=== PATIENT | female | born 1965 | race Caucasian/White ===

== ENCOUNTER 2018-03-15 06:00 | Inpatient (IN) | payer BC, OTHER ==
[~2018-03-15] VITALS: Ht 172.7 cm; Wt 248.0 kg
[~2018-03-15 06:00] MED LIST: ATOR40TA72 PO; CITA20TA11 PO; COU5T PO; CYCL-394 PO; FENO135C4 PO; FLUT1DIS4 IH; OXYC30TA85 PO; PER10325T PO; ZOLP10TA5 PO; [UNRECOGNIZED DRUG - CODE] PO
[2018-03-15] MEDS ORDERED: proCHLORperazine 10 MG/2 ml inj IV ONE (06:40)
[2018-03-15] MEDS ORDERED: normal saline 1000ML IV soln IVB ONE (06:40)
[2018-03-15] MEDS ORDERED: ketorolac trometh. 30mg/ml inj. IV ONE (06:40)
[2018-03-15 06:58] LABS: BASOPHILS % (AUTO) 0.3 % (0-1); EOSINOPHILS # (AUTO) 0.3 X10'3 (0-0.9); HEMATOCRIT 40.3 % (35.0-45.0); LYMPHOCYTES # (AUTO) 2.5 X10'3 (1.1-4.8); LYMPHOCYTES % (AUTO) 21.8 % (21-51); MEAN CORPUSCULAR HEMOGLOBIN 30.5 PG (27.0-31.0); MEAN CORPUSCULAR HGB CONC 34.7 % (33.0-36.5); MEAN CORPUSCULAR VOLUME 87.9 FL (78-98); MEAN PLATELET VOLUME 9.1 FL (7.4-10.4); MONOCYTES # (AUTO) 0.6 X10'3 (0-0.9); NEUTROPHILS # (AUTO) 8.1 X10'3 (1.8-7.7); NEUTROPHILS % (AUTO) 69.9 % (42-75); PLATELET COUNT 258 X10'3 (140-440); RED BLOOD COUNT 4.58 X10'6 (4.20-5.60); RED CELL DISTRIBUTION WIDTH 13.6 % (11.5-14.5); WHITE BLOOD COUNT 11.6 X10'3 (4.5-11.0)
[2018-03-15] MEDS: MORPHINE 2MG in 2ml NS syringe IV PRN ×2 (07:09→08:45)
[2018-03-15 07:28] LABS: ALANINE AMINOTRANSFERASE 24 U/L (12-78); ALBUMIN 3.3 G/DL (3.4-5.0); ALBUMIN/GLOBULIN RATIO 0.9 (1.1-1.5); ALKALINE PHOSPHATASE 81 IU/L (46-116); ANION GAP 11 (8-16); ASPARTATE AMINO TRANSFERASE 15 U/L (10-37); BILIRUBIN,TOTAL 0.3 MG/DL (0.1-1.0); BLOOD UREA NITROGEN 9 MG/DL (7-18); BUN/CREATININE RATIO 10.5 (6.6-38.0); CALCIUM 8.9 MG/DL (8.5-10.1); CHLORIDE 103 MMOL/L (99-107); CREATININE 0.86 MG/DL (0.40-0.90); GLUCOSE 263 MG/DL (70-104); LIPASE 64 U/L (73-393); POTASSIUM 4.3 MMOL/L (3.5-5.1); SODIUM 139 MMOL/L (135-145); TOTAL PROTEIN 7.1 G/DL (6.4-8.2); eGFR 70 ML/MIN
[2018-03-15] MEDS ORDERED: levoFLOXACIN-Levaquin 750MG/D5 150 ML IV STA (08:29)
[2018-03-15 09:02] LABS: CLARITY,URINE CLOUDY (Clear); COLOR,URINE PINK (Yellow); GLUCOSE, URINE >=1000 mg/dl (Neg); KETONES,URINE TRACE mg/dl (Neg); LEUKOCYTE ESTERASE ,URINE NEGATIVE (Neg); NITRITES, URINE NEGATIVE (Neg); OCCULT BLOOD,URINE LARGE (Neg); PH,URINE 6.5 (4.8-8.0); PROTEIN,URINE TRACE mg/dl (Neg); UA COLLECTION TYPE CLN CATCH MIDSTREAM; UROBILINOGEN,URINE 0.2 E.U/dL (0.2-1.0)
[2018-03-15 09:07] LABS: BACTERIA,URINE 2+ /HPF (Neg); MUCUS STRANDS NONE SEEN /LPF (Neg); RBC,URINE TNTC /HPF (0-2); SQUAMOUS EPITHELIAL CELL,UR MODERATE /LPF (FEW); WBC,URINE 0-4 /HPF (0-4)
[2018-03-15] MEDS ORDERED: glucagon, human recombinant 1mg kit SUBCUT PRN (09:35)
[2018-03-15] MEDS ORDERED: potassium Cl 40MEQ/NS 500ml 500 ML IV PRN ×2 (09:35)
[2018-03-15] MEDS ORDERED: ondansetron/PF 4mg/2ml inj IV PRN (09:35)
[2018-03-15] MEDS ORDERED: mag hydrox/Alum hydrox/simeth 30ml oral suspension PO PRN (09:35)
[2018-03-15] MEDS ORDERED: magnesium Cl slow-release 64mg tablet PO PRN (09:35)
[2018-03-15] MEDS ORDERED: bisacodyl 10mg suppository rectal RC PRN (09:35)
[2018-03-15] MEDS ORDERED: dextrose 50%-water 50ml dispensing syringe IV PRN ×2 (09:35)
[2018-03-15] MEDS ORDERED: insulin Lispro (HumaLOG) vial - multi-dose SQ SCH (09:35)
[2018-03-15] MEDS ORDERED: diphenhydrAMINE 50 mg/ml inj IV PRN (09:35)
[2018-03-15] MEDS ORDERED: metoclopramide 5 mg/ml inj IV PRN (09:35)
[2018-03-15] MEDS ORDERED: HYDROmorphone inj. 0.5 MG/0.5 ML DISP.SYRIN IV PRN ×2 (09:35)
[2018-03-15] MEDS ORDERED: magnesium 4gm in 100ml NS 100 ML IV PRN (09:35)
[2018-03-15] MEDS ORDERED: magnesium 2GM in 50ml NS 50 ML IV PRN (09:35)
[2018-03-15] MEDS ORDERED: MESSAGE TO PHARMACY PO ONE (09:35)
[2018-03-15] MEDS ORDERED: acetaminophen 325mg tablet PO PRN ×2 (09:35)
[2018-03-15] MEDS ORDERED: magnesium hydroxide 30ml (MOM) UD suspension PO PRN (09:35)
[2018-03-15] MEDS ORDERED: potassium Cl 20 mEq SR tablet PO PRN ×2 (09:35)
[2018-03-15] MEDS ORDERED: dextrose ORAL solution 15 GM/59 ML bottle PO PRN ×2 (09:35)
[2018-03-15] MEDS ORDERED: DABI150C PO (09:41)
[2018-03-15] MEDS ORDERED: INSU100V11 SQ (09:41)
[2018-03-15] MEDS ORDERED: INSU100V9 SQ (09:41)
[2018-03-15 10:15] LABS: HEMOGLOBIN A1C 7.8 % (4.5-6.2)
[2018-03-15 11:59] VITALS: BP 134/80
[2018-03-15] MEDS: morphine 4 MG/ML inj SYRINge IV PRN ×2 (15:01→20:11)
[2018-03-15] MEDS: potassium Cl 20mEq in NS 1,000 ML IV SCH ×2 (17:32→20:17)
[2018-03-15 19:00] VITALS: BP 164/92
[2018-03-15] MEDS: carvedilol 6.25mg tablet PO SCH (20:10)
[2018-03-15] MEDS: docusate sod 100mg capsule PO SCH (20:10)
[2018-03-15] MEDS: insulin glargine (Lantus) pen - multi-dose SQ SCH (20:42)
[2018-03-15] MEDS: dabigatran 150mg capsule PO SCH (20:43)
[2018-03-15] MEDS: tamsulosin 0.4mg capsule PO SCH (20:49)
[2018-03-15] MEDS ORDERED: temazepam 15mg capsule PO PRN (21:00)
[2018-03-16] VITALS (15 sets, daily range): BP systolic 118–159; BP diastolic 67–97
[2018-03-16] MEDS: morphine 4 MG/ML inj SYRINge IV PRN ×7 (00:15→20:49)
[2018-03-16] MEDS: potassium Cl 20mEq in NS 1,000 ML IV SCH ×3 (01:32→14:51)
[2018-03-16 05:10] LABS: BASOPHILS # (AUTO) 0.1 X10'3 (0-0.2); BASOPHILS % (AUTO) 0.8 % (0-1); EOSINOPHILS # (AUTO) 0.2 X10'3 (0-0.9); EOSINOPHILS % (AUTO) 2.1 % (0-6); HEMATOCRIT 40.5 % (35.0-45.0); HEMOGLOBIN 13.8 g/dl (12.0-16.0); LYMPHOCYTES % (AUTO) 26.7 % (21-51); MEAN CORPUSCULAR HEMOGLOBIN 29.8 PG (27.0-31.0); MEAN CORPUSCULAR HGB CONC 33.9 % (33.0-36.5); MEAN PLATELET VOLUME 9.3 FL (7.4-10.4); MONOCYTES # (AUTO) 0.9 X10'3 (0-0.9); MONOCYTES % (AUTO) 8.1 % (2-12); NEUTROPHILS # (AUTO) 6.9 X10'3 (1.8-7.7); NEUTROPHILS % (AUTO) 62.3 % (42-75); PLATELET COUNT 270 X10'3 (140-440); RED BLOOD COUNT 4.61 X10'6 (4.20-5.60); RED CELL DISTRIBUTION WIDTH 13.5 % (11.5-14.5); WHITE BLOOD COUNT 11.1 X10'3 (4.5-11.0)
[2018-03-16] MEDS ORDERED: ketorolac trometh. 30mg/ml inj. IV ONE (05:25)
[2018-03-16] MEDS ORDERED: morphine 4 MG/ML inj SYRINge IV ONE (05:25)
[2018-03-16 05:41] LABS: ALBUMIN 3.1 G/DL (3.4-5.0); ANION GAP 9 (8-16); BLOOD UREA NITROGEN 8 MG/DL (7-18); BUN/CREATININE RATIO 9.2 (6.6-38.0); CALCIUM 8.7 MG/DL (8.5-10.1); CHLORIDE 102 MMOL/L (99-107); CREATININE 0.87 MG/DL (0.40-0.90); GLUCOSE 154 MG/DL (70-104); MAGNESIUM 1.5 MG/DL (1.5-2.4); SODIUM 140 MMOL/L (135-145); TOTAL CARBON DIOXIDE 29.3 MMOL/L (24-32); eGFR 69 ML/MIN
[2018-03-16 05:46] LABS: PHOSPHORUS 4.1 MG/DL (2.3-4.5); POTASSIUM 4.3 MMOL/L (3.5-5.1)
[2018-03-16] MEDS: pantoprazole 40 MG vial IV SCH (07:43)
[2018-03-16] MEDS: CefTRIAXone 2gm/D5W 50ml 50 ML IV SCH (07:43)
[2018-03-16] MEDS: dabigatran 150mg capsule PO SCH ×2 (07:44→20:44)
[2018-03-16] MEDS: citalopram 20mg tablet PO SCH (07:44)
[2018-03-16] MEDS: docusate sod 100mg capsule PO SCH ×2 (07:45→20:45)
[2018-03-16] MEDS: carvedilol 6.25mg tablet PO SCH ×2 (07:46→20:45)
[2018-03-16] MEDS: insulin glargine (Lantus) pen - multi-dose SQ SCH ×2 (07:51→20:47)
[2018-03-16] MEDS: K and/or MAG REPLACEMENT MC SCH (07:53)
[2018-03-16] MEDS ORDERED: pneumococcal 23-VAL P-sac vacc 25 mcg/0.5ml vial IMVAC ONE (09:00)
[2018-03-16] MEDS ORDERED: midazolam 2 mg/2 ml injection ONE (11:53)
[2018-03-16] MEDS ORDERED: fentaNYL /PF 50mcg/ml 5ml ampule ONE (11:53)
[2018-03-16] MEDS ORDERED: rocuronium 10mg/ml inj IV ONE (11:55)
[2018-03-16] MEDS ORDERED: propofol inj 20 ML IV ONE (11:55)
[2018-03-16] MEDS ORDERED: LIDOcaine 2% (20mg/ml) 5ml vial ONE (11:57)
[2018-03-16] MEDS ORDERED: ePHEDrine 50MG/ML INJ. ONE (12:25)
[2018-03-16] MEDS ORDERED: phenylephrine 10mg/ml inj IV ONE (12:25)
[2018-03-16] MEDS ORDERED: ringers solution, lacted 1,000 ML IV SCH (12:42)
[2018-03-16] MEDS ORDERED: meperidine/PF 50mg/ml syringe IV PRN ×2 (12:45)
[2018-03-16] MEDS ORDERED: morphine 4 MG/ML inj SYRINge IV PRN (12:45)
[2018-03-16] MEDS ORDERED: ondansetron/PF 4mg/2ml inj IV PRN (12:45)
[2018-03-16] MEDS ORDERED: proCHLORperazine 10 MG/2 ml inj IV PRN (12:45)
[2018-03-16] MEDS ORDERED: ondansetron/PF 4mg/2ml inj ONE (13:08)
[2018-03-16] MEDS ORDERED: glycopyrrolate 0.2mg/ml inj ONE (13:08)
[2018-03-16] MEDS ORDERED: neostigmine methylsulfate 1 MG/ML 10ml vial ONE (13:08)
[2018-03-16] MEDS: meperidine/PF 50mg/ml syringe IV PRN ×2 (13:32→13:38)
[2018-03-16] MEDS: tamsulosin 0.4mg capsule PO SCH (20:44)
[2018-03-16] MEDS: lactobacillus rhamnosus 10,000 MMU CELLS/CAPSULE PO SCH (20:44)
[2018-03-17] MEDS: potassium Cl 20mEq in NS 1,000 ML IV SCH ×2 (01:02→08:38)
[2018-03-17] MEDS: morphine 4 MG/ML inj SYRINge IV PRN ×3 (01:06→10:20)
[2018-03-17 06:16] LABS: BASOPHILS % (AUTO) 0.4 % (0-1); EOSINOPHILS # (AUTO) 0.4 X10'3 (0-0.9); EOSINOPHILS % (AUTO) 4.6 % (0-6); HEMATOCRIT 36.4 % (35.0-45.0); HEMOGLOBIN 12.5 g/dl (12.0-16.0); LYMPHOCYTES # (AUTO) 2.6 X10'3 (1.1-4.8); LYMPHOCYTES % (AUTO) 29.9 % (21-51); MEAN CORPUSCULAR HEMOGLOBIN 30.2 PG (27.0-31.0); MEAN CORPUSCULAR HGB CONC 34.4 % (33.0-36.5); MEAN CORPUSCULAR VOLUME 87.8 FL (78-98); MEAN PLATELET VOLUME 9.2 FL (7.4-10.4); MONOCYTES # (AUTO) 0.7 X10'3 (0-0.9); MONOCYTES % (AUTO) 7.6 % (2-12); NEUTROPHILS % (AUTO) 57.5 % (42-75); PLATELET COUNT 250 X10'3 (140-440); RED BLOOD COUNT 4.15 X10'6 (4.20-5.60); RED CELL DISTRIBUTION WIDTH 13.4 % (11.5-14.5); WHITE BLOOD COUNT 8.6 X10'3 (4.5-11.0)
[2018-03-17 06:25] LABS: ANION GAP 5 (8-16); BLOOD UREA NITROGEN 5 MG/DL (7-18); BUN/CREATININE RATIO 7.1 (6.6-38.0); CALCIUM 8.7 MG/DL (8.5-10.1); CHLORIDE 105 MMOL/L (99-107); GLUCOSE 124 MG/DL (70-104); MAGNESIUM 1.8 MG/DL (1.5-2.4); PHOSPHORUS 4.4 MG/DL (2.3-4.5); SODIUM 140 MMOL/L (135-145); TOTAL CARBON DIOXIDE 29.9 MMOL/L (24-32); eGFR 88 ML/MIN
[2018-03-17 07:30] VITALS: BP 151/75
[2018-03-17] MEDS: K and/or MAG REPLACEMENT MC SCH (08:00)
[2018-03-17] MEDS: pantoprazole 40 MG vial IV SCH (08:34)
[2018-03-17] MEDS: CefTRIAXone 2gm/D5W 50ml 50 ML IV SCH (08:35)
[2018-03-17] MEDS: carvedilol 6.25mg tablet PO SCH (08:36)
[2018-03-17] MEDS: citalopram 20mg tablet PO SCH (08:36)
[2018-03-17] MEDS: docusate sod 100mg capsule PO SCH (08:36)
[2018-03-17] MEDS: dabigatran 150mg capsule PO SCH (08:37)
[2018-03-17] MEDS: lactobacillus rhamnosus 10,000 MMU CELLS/CAPSULE PO SCH (08:37)
[2018-03-17] MEDS: insulin glargine (Lantus) pen - multi-dose SQ SCH (08:53)
[2018-03-17 11:00] VITALS: BP 153/90
[2018-03-17] MEDS ORDERED: TAMS0.4C32 PO (11:21)
[2018-03-17] MEDS ORDERED: CARV6.253 PO (11:21)
[2018-03-17] MEDS ORDERED: CEPH250T PO (11:21)
[2018-03-17] MEDS ORDERED: LACT1CAP26 PO (11:21)
[2018-03-18] MEDS ORDERED: pantoprazole 40mg Tablet.DR PO SCH (07:30)
== END 2018-03-17 13:15 | disposition home or self-care (01) | DRG 669 ==
LOC: ER 06:01 → MED 3N 10:53 → ER 03-16 08:16 → MED 3N 03-16 08:19 → UNDOADMIN 03-16 08:19
PROVIDERS: ADMIT Internal Medicine; ATTEND Family Medicine
PROC: 0T768DZ Dilation of Right Ureter with Intraluminal Device, Via Natural or Artificial Opening Endoscopic (ICD-10-PCS; 2018-03-16)
PROC: 0TC68ZZ Extirpation of Matter from Right Ureter, Via Natural or Artificial Opening Endoscopic (ICD-10-PCS; principal; 2018-03-16 12:00)
DX: N13.2 Hydronephrosis with renal and ureteral calculous obstruction (principal); E11.9 Type 2 diabetes mellitus without complications; F12.90 Cannabis use, unspecified, uncomplicated; E78.00 Pure hypercholesterolemia, unspecified; E78.5 Hyperlipidemia, unspecified; F32.9 Major depressive disorder, single episode, unspecified; I10 Essential (primary) hypertension; K21.9 Gastro-esophageal reflux disease without esophagitis; Z79.01 Long term (current) use of anticoagulants; Z79.4 Long term (current) use of insulin; Z86.73 Personal history of transient ischemic attack (TIA), and cerebral infarction without residual deficits; Z86.711 Personal history of pulmonary embolism; Z87.442 Personal history of urinary calculi
CPT/HCPCS: 36415; 74176; 76001; 80048; 80053; 81001; 82948; 83036; 83690; 83735; 84100; 85025; 87070; 90732; 93005; A4402; C1758; C1769; C2625; C9113; J0696; J0780; J1815; J1885; J1956; J2001; J2175; J2250; J2270; J2274; J2370; J2405; J2704; J2710; J3010; J3490; J7030; J7120

== ENCOUNTER 2018-09-08 16:10 | Emergency (ER) | payer BC, OTHER ==
[~2018-09-08] VITALS: Ht 172.7 cm; Wt 104.5 kg
[~2018-09-08 16:10] MED LIST changes: +CARV6.253 PO; +CEPH250T PO; +CITA-278 PO; -CITA20TA11 PO; -COU5T PO; -CYCL-394 PO; +DABI150C PO; -FLUT1DIS4 IH; +INSU100V11 SQ; +INSU100V9 SQ; +LACT1CAP26 PO; -OXYC30TA85 PO; -PER10325T PO; +TAMS0.4C32 PO; -ZOLP10TA5 PO; -[UNRECOGNIZED DRUG - CODE] PO
[2018-09-08 16:47] LABS: BASOPHILS % (AUTO) 0.4 % (0-1); EOSINOPHILS # (AUTO) 0.3 X10'3 (0-0.9); EOSINOPHILS % (AUTO) 2.3 % (0-6); HEMATOCRIT 43.3 % (35.0-45.0); HEMOGLOBIN 14.2 g/dl (12.0-16.0); LYMPHOCYTES # (AUTO) 2.9 X10'3 (1.1-4.8); LYMPHOCYTES % (AUTO) 23.8 % (21-51); MEAN CORPUSCULAR HEMOGLOBIN 28.4 PG (27.0-31.0); MEAN CORPUSCULAR HGB CONC 32.8 % (33.0-36.5); MEAN CORPUSCULAR VOLUME 86.5 FL (78-98); MEAN PLATELET VOLUME 9.5 FL (7.4-10.4); MONOCYTES # (AUTO) 0.7 X10'3 (0-0.9); MONOCYTES % (AUTO) 5.5 % (2-12); NEUTROPHILS # (AUTO) 8.2 X10'3 (1.8-7.7); PLATELET COUNT 360 X10'3 (140-440); RED CELL DISTRIBUTION WIDTH 13.7 % (11.5-14.5); WHITE BLOOD COUNT 12.1 X10'3 (4.5-11.0)
[2018-09-08 17:03] LABS: ALANINE AMINOTRANSFERASE 24 U/L (12-78); ALBUMIN 3.8 G/DL (3.4-5.0); ALBUMIN/GLOBULIN RATIO 0.9 (1.1-1.5); ALKALINE PHOSPHATASE 102 IU/L (46-116); ANION GAP 9 (8-16); ASPARTATE AMINO TRANSFERASE 17 U/L (10-37); BILIRUBIN,TOTAL 0.4 MG/DL (0.1-1.0); BLOOD UREA NITROGEN 5 MG/DL (7-18); BUN/CREATININE RATIO 6.3 (6.6-38.0); CALCIUM 9.2 MG/DL (8.5-10.1); CHLORIDE 101 MMOL/L (99-107); GLUCOSE 110 MG/DL (70-104); POTASSIUM 3.8 MMOL/L (3.5-5.1); SODIUM 141 MMOL/L (135-145); TOTAL CARBON DIOXIDE 31.1 MMOL/L (24-32); TOTAL PROTEIN 7.9 G/DL (6.4-8.2); eGFR 75 ML/MIN
[2018-09-08 17:09] LABS: D-DIMER < 0.19 MG/L FEU (0-0.50); PARTIAL THROMBOPLASTIN TIME 33 SECONDS (22-32); PROTHROMBIN TIME 10.2 SECONDS (9.0-12.0)
[2018-09-08] MEDS ORDERED: benzonatate 100mg capsule PO ONE (17:25)
[2018-09-08 18:09] VITALS: BP 122/99
== END 2018-09-08 18:15 | disposition home or self-care (01) ==
LOC: ER 16:10
DX: R07.89 Other chest pain (principal); E78.00 Pure hypercholesterolemia, unspecified; J45.909 Unspecified asthma, uncomplicated; E11.9 Type 2 diabetes mellitus without complications; G89.29 Other chronic pain; Z86.718 Personal history of other venous thrombosis and embolism; Z86.73 Personal history of transient ischemic attack (TIA), and cerebral infarction without residual deficits; Z88.8 Allergy status to other drugs, medicaments and biological substances; Z79.4 Long term (current) use of insulin; Z79.899 Other long term (current) drug therapy
CPT/HCPCS: 36415; 71045; 80053; 84484; 85025; 85379; 85610; 85730; 93005; 99285

== ENCOUNTER 2019-02-22 11:03 | Emergency (ER) | payer OTHER, BC ==
[~2019-02-22] VITALS: Ht 172.7 cm; Wt 102.0 kg
[~2019-02-22 11:03] MED LIST changes: -CITA-278 PO; +CITA20TA28 PO
[2019-02-22] MEDS ORDERED: ondansetron 4mg rapidly disintigrating tab PO ONE (12:25)
[2019-02-22] MEDS ORDERED: LIDOcaine 5% patch TP ONE (12:25)
[2019-02-22] MEDS ORDERED: HYDROcodone/acetaminophen 5mg/325mg tablet PO ONE (12:25)
[2019-02-22] MEDS ORDERED: acetaminophen 325mg tablet PO ONE (12:25)
[2019-02-22] MEDS ORDERED: LIDO700A32 TOP (12:36)
[2019-02-22] MEDS ORDERED: ACET-812 PO (12:36)
[2019-02-22] MEDS ORDERED: HYDR-3965 PO (12:36)
[2019-02-22 12:56] VITALS: BP 152/74
== END 2019-02-22 12:58 | disposition home or self-care (01) ==
LOC: ER 11:03
DX: M54.5 Low back pain (principal); E78.00 Pure hypercholesterolemia, unspecified; J45.909 Unspecified asthma, uncomplicated; E11.9 Type 2 diabetes mellitus without complications; G89.29 Other chronic pain; Z87.442 Personal history of urinary calculi; Z86.711 Personal history of pulmonary embolism; Z86.73 Personal history of transient ischemic attack (TIA), and cerebral infarction without residual deficits; Z86.718 Personal history of other venous thrombosis and embolism; Z98.890 Other specified postprocedural states; Z88.8 Allergy status to other drugs, medicaments and biological substances; Z79.4 Long term (current) use of insulin; Z79.899 Other long term (current) drug therapy; W08.XXXA Fall from other furniture, initial encounter; Y93.89 Activity, other specified; Y92.89 Other specified places as the place of occurrence of the external cause; Y99.8 Other external cause status
CPT/HCPCS: 99284

== ENCOUNTER 2020-08-23 08:25 | Emergency (ER) | payer OTHER, BC ==
[~2020-08-23] VITALS: Ht 172.7 cm; Wt 102.3 kg
[~2020-08-23 08:25] MED LIST changes: +ACET-812 PO; -CEPH250T PO; +LIDO700A32 TOP
[2020-08-23 09:15] LABS: CLARITY,URINE CLOUDY (Clear); COLOR,URINE YELLOW (Yellow); GLUCOSE, URINE NEGATIVE (Neg); KETONES,URINE NEGATIVE (Neg); LEUKOCYTE ESTERASE ,URINE NEGATIVE (Neg); NITRITES, URINE NEGATIVE (Neg); OCCULT BLOOD,URINE NEGATIVE (Neg); PROTEIN,URINE NEGATIVE (Neg); UROBILINOGEN,URINE 0.2 E.U/dL (0.2-1.0)
[2020-08-23] MEDS ORDERED: normal saline 1000ml 1,000 ML IV ONE (09:15)
[2020-08-23 09:16] LABS: UA COLLECTION TYPE CLN CATCH MIDSTREAM
[2020-08-23 09:22] LABS: BACTERIA,URINE 3+ /HPF (Neg); MUCUS STRANDS MANY /LPF (Neg); RBC,URINE NONE SEEN /HPF (0-2); SQUAMOUS EPITHELIAL CELL,UR MANY /LPF (FEW); WBC,URINE 0-4 /HPF (0-4)
[2020-08-23 09:23] LABS: AMORPHOUS PHOSPHATES 4+
[2020-08-23 09:25] LABS: BASOPHILS # (AUTO) 0.1 X10'3 (0-0.2); BASOPHILS % (AUTO) 0.6 % (0-1); EOSINOPHILS # (AUTO) 0.3 X10'3 (0-0.9); EOSINOPHILS % (AUTO) 3.8 % (0-6); HEMATOCRIT 42.6 % (35.0-45.0); HEMOGLOBIN 14.2 g/dl (12.0-16.0); LYMPHOCYTES % (AUTO) 46.8 % (21-51); MEAN CORPUSCULAR HEMOGLOBIN 29.4 PG (27.0-31.0); MEAN CORPUSCULAR HGB CONC 33.4 g/dL (33.0-36.5); MEAN CORPUSCULAR VOLUME 88.1 FL (78-98); MEAN PLATELET VOLUME 8.6 FL (7.4-10.4); MONOCYTES # (AUTO) 0.8 X10'3 (0-0.9); NEUTROPHILS # (AUTO) 3.4 X10'3 (1.8-7.7); NEUTROPHILS % (AUTO) 39.8 % (42-75); PLATELET COUNT 330 X10'3 (140-440); RED BLOOD COUNT 4.84 X10'6 (4.20-5.60); WHITE BLOOD COUNT 8.6 X10'3 (4.5-11.0)
[2020-08-23 09:33] LABS: ALBUMIN 3.6 G/DL (3.4-5.0); ANION GAP 8 (8-16); BLOOD UREA NITROGEN 16 MG/DL (7-18); BUN/CREATININE RATIO 20.5 (6.6-38.0); CALCIUM 9.4 MG/DL (8.5-10.1); CHLORIDE 99 MMOL/L (99-107); CREATININE 0.78 MG/DL (0.40-0.90); GLUCOSE 154 MG/DL (70-104); POTASSIUM 3.8 MMOL/L (3.5-5.1); SODIUM 140 MMOL/L (135-145); TOTAL CARBON DIOXIDE 33.5 MMOL/L (24-32); eGFR 77 ML/MIN
[2020-08-23] MEDS ORDERED: iohexol 300mg/ml 100ml inj. ONE (09:52)
[2020-08-23 10:44] LABS: PLATELET ESTIMATE NORMAL; TOTAL CELLS COUNTED 100
[2020-08-23 11:06] VITALS: BP 154/84
== END 2020-08-23 11:07 | disposition home or self-care (01) ==
LOC: ER 08:26
DX: R10.9 Unspecified abdominal pain (principal); E78.00 Pure hypercholesterolemia, unspecified; J45.909 Unspecified asthma, uncomplicated; E11.9 Type 2 diabetes mellitus without complications; G89.29 Other chronic pain; F41.9 Anxiety disorder, unspecified; Z86.73 Personal history of transient ischemic attack (TIA), and cerebral infarction without residual deficits; Z86.718 Personal history of other venous thrombosis and embolism; Z86.711 Personal history of pulmonary embolism; Z98.890 Other specified postprocedural states; Z88.8 Allergy status to other drugs, medicaments and biological substances; Z79.4 Long term (current) use of insulin; Z79.899 Other long term (current) drug therapy
CPT/HCPCS: 36415; 74177; 76857; 80048; 81001; 85007; 85025; 96360; 99285; J7030; Q9967

== ENCOUNTER 2024-08-31 05:50 | Emergency (ER) | payer OTHER, BC ==
[~2024-08-31] VITALS: Ht 172.7 cm; Wt 84.5 kg
[2024-08-31] MEDS: morphine 4 MG/ML inj SYRINge IM ONE (06:20)
[2024-08-31] MEDS ORDERED: OXYC-145 PO (06:27)
[2024-08-31] MEDS ORDERED: CYCL-357 PO (06:27)
[2024-08-31] MEDS: ondansetron 4mg rapidly disintigrating tab PO ONE (07:30)
[2024-08-31] MEDS: ketorolac trometh 30MG/ML vial 30 MG/ML VIAL IM ONE (09:43)
[2024-08-31 09:47] VITALS: BP 130/75; PULSE 61; RESP 16; TEMP 98.1; O2SAT 95
== END 2024-08-31 09:46 | disposition home or self-care (01) ==
LOC: ER 05:51
DX: G89.29 Other chronic pain (principal); M54.50 Low back pain, unspecified; E78.00 Pure hypercholesterolemia, unspecified; J45.909 Unspecified asthma, uncomplicated; E11.9 Type 2 diabetes mellitus without complications; F41.9 Anxiety disorder, unspecified; F12.90 Cannabis use, unspecified, uncomplicated; Z88.8 Allergy status to other drugs, medicaments and biological substances; Z79.4 Long term (current) use of insulin; Z79.899 Other long term (current) drug therapy; Z86.73 Personal history of transient ischemic attack (TIA), and cerebral infarction without residual deficits; Z86.711 Personal history of pulmonary embolism; Z86.718 Personal history of other venous thrombosis and embolism; Z98.890 Other specified postprocedural states; Z87.442 Personal history of urinary calculi
CPT/HCPCS: 96372; 99284; J1885; J2270